=== PATIENT | male | born 1990 | race Two or more races ===

== ENCOUNTER 2020-02-26 22:50 | Emergency (ER) | payer MEDICAID, OTHER ==
[~2020-02-26] VITALS: Ht 185.4 cm; Wt 86.2 kg
--- NOTE | 2020-02-26 23:29 | NUR ---
PT AAOX4. BIBRA C/O SUICIDAL IDEATION WITH PLAN TO OVERDOSE +AUDITORY HALLUCINATIONS. PT PLACED IN GOWN, ON MONITOR, AND PULSE OX. SITTER AT BEDSIDE/ PT BELONINGS PLACED IN LOCKER. WILL CONTINUE TO MONITOR.
[2020-02-26 23:47] LABS: BASOPHILS % (AUTO) 0.6 % (0.0-2.0); EOSINOPHILS % (AUTO) 2.8 % (0.0-6.0); HEMATOCRIT 40 % (39-51); HEMOGLOBIN 13.1 g/dL (13.5-17.5); LYMPHOCYTES # (AUTO) 2.7 /CMM (0.8-4.8); LYMPHOCYTES % (AUTO) 35.3 % (20.0-44.0); MEAN CORPUSCULAR HGB CONC 33 g/dl (31.0-36.0); MEAN CORPUSCULAR VOLUME 88 fL (80-96); MONOCYTES % (AUTO) 12.6 % (2.0-12.0); NEUTROPHILS # (AUTO) 3.7 /CMM (1.8-8.9); NEUTROPHILS % (AUTO) 48.7 % (43.0-81.0); PLATELET COUNT (AUTO) 314 /CMM (150-450); RED BLOOD CELL COUNT(AUTO) 4.52 MIL/uL (4.5-6.0); WHITE BLOOD COUNT (AUTO) 7.6 K/uL (4.3-11.0)
[2020-02-26 23:56] LABS: CALCIUM, SERUM 8.7 mg/dL (8.5-10.1); CARBON DIOXIDE 26 mmol/L (21-32); CHLORIDE 108 mmol/L (98-107); CREATININE 0.9 mg/dL (0.6-1.3); GLUCOSE 117 mg/dL (74-106); POTASSIUM 3.5 mmol/L (3.5-5.1); SODIUM SERUM 142 mmol/L (136-145); UREA NITROGEN, BLOOD 16 mg/dL (7-18)
--- NOTE | 2020-02-26 23:56 | NUR ---
SPOKE TO PT REGARDING PROVIDING URINE SAMPLE. STATED WILL DO IN 10 MINS.
[2020-02-27 00:02] LABS: ACETAMINOPHEN 0 ug/ml (10-30); ALANINE AMINOTRANSFERASE 19 U/L (12-78); ALBUMIN 3.5 g/dL (3.4-5.0); ALCOHOL, BLOOD < 3 mg/dL (0-0); ALKALINE PHOSPHATASE 79 U/L (46-116); ASPARTATE AMINOTRANSFERASE 22 U/L (15-37); BILIRUBIN,DIRECT 0.1 mg/dL (0.0-0.2); BILIRUBIN,TOTAL 0.3 mg/dL (0.2-1.0)
[2020-02-27 00:41] LABS: BILIRUBIN,URINE NEGATIVE (NEGATIVE); BLOOD, URINE NEGATIVE Ery/uL (NEGATIVE); COLOR,URINE YELLOW (YELLOW); LEUKOCYTE ESTERASE ,URINE NEGATIVE (NEGATIVE); NITRITE, URINE NEGATIVE (NEGATIVE); PH,URINE 6.5 (5.0-8.0); PROTEIN,URINE NEGATIVE (NEGATIVE); UGLUCOSE NEGATIVE (NEGATIVE)
[2020-02-27 00:59] LABS: UROBILINOGEN,URINE 0.2 EU/dL (0.2)
--- NOTE | 2020-02-27 03:56 | NUR ---
PT REMAINS ASLEEP,VSS.
--- NOTE | 2020-02-27 04:00 | NUR ---
CALLED [facility], LEFT VOICEMAIL
--- NOTE | 2020-02-27 05:42 | NUR ---
PT AWAKE IN BED, RESTING COMFORTABLY. VSS.
--- NOTE | 2020-02-27 07:17 | NUR ---
REPORT GIVEN TO CARMEN VILLAR FOR [facility]
[2020-02-27] MEDS ORDERED: QUETIAPINE FUMARATE 25 MG TABLET ONE (08:52)
[2020-02-27] MEDS: QUETIAPINE FUMARATE 25 MG TABLET PO SCH ×2 (08:53→09:05)
[2020-02-27] MEDS ORDERED: LORAZEPAM 1 MG TABLET ONE (09:07)
[2020-02-27] MEDS ORDERED: LORAZEPAM INJ 2 MG/ML VIAL ONE (09:18)
[2020-02-27] MEDS ORDERED: OLANZAPINE 10 MG VIAL IM ONE (09:18)
[2020-02-27] MEDS ORDERED: OLANZAPINE ZYDIS 5 MG TAB.RAPDIS PO ONE (09:30)
[2020-02-27] MEDS ORDERED: LORAZEPAM 1 MG TABLET PO ONE (09:30)
[2020-02-27] MEDS ORDERED: HALOPERIDOL LACTATE INJ 5 MG/ML VIAL ONE (10:10)
[2020-02-27] MEDS ORDERED: HALOPERIDOL LACTATE INJ 5 MG/ML VIAL IM ONE (10:30)
--- NOTE | 2020-02-27 14:50 | NUR ---
Lock Setter Note: Consult was requested by ED staff. Pt is a 29 year old male who presented in the ED due to suicidal ideation with a plan to overdose. SW was not able to assess the pt due to the pt being medicated and knocked out. SW will make another attempt at a later time.
--- NOTE | 2020-02-27 18:07 | NUR ---
FAXED FACESHEET AND CLINICALS [facility]
--- NOTE | 2020-02-27 19:34 | NUR ---
PT ACCEPTED AT [facility] ACCEPTING MD HAM UNIT 1 PHONE NUMBER FOR REPORT EXT [phone]
--- NOTE | 2020-02-27 19:41 | NUR ---
[facility] ETA 1999 HOURS
[2020-02-27 19:55] VITALS: BP 127/62
--- NOTE | 2020-02-27 19:56 | NUR ---
REPORT CALLED TO [facility] BECKER. AWAITING TRANSPORT.
--- NOTE | 2020-02-27 20:29 | NUR ---
PT WAS PICKED UP VIA GURNEY AND TRANSFERRED TO [facility] IN STABLE CONDITION. ALL BELONGING S PIXCKED UP BY PT
== END 2020-02-27 20:33 ==
LOC: ER 22:53
DX: F29 Unspecified psychosis not due to a substance or known physiological condition (principal); R45.851 Suicidal ideations; F19.10 Other psychoactive substance abuse, uncomplicated; F15.10 Other stimulant abuse, uncomplicated; Z82.49 Family history of ischemic heart disease and other diseases of the circulatory system; Z20.828 Contact with and (suspected) exposure to other viral communicable diseases
CPT/HCPCS: 36415; 80048; 80076; 80299; 80307; 80320; 81003; 85025; 87426; 96372; 99284; C9803; J1630; G0480; J2060; J3490

== ENCOUNTER 2021-08-28 23:07 | Emergency (ER) | payer MEDICAID, OTHER ==
[~2021-08-28] VITALS: Ht 182.9 cm; Wt 68.0 kg
--- NOTE | 2021-08-29 01:26 | NUR ---
PRESENTED TO THE ER FOR C/O ANXIETY AND DEPRESSION , REQUESITNG VOLUNTARY PSYCH ADMIT. PT A OX3, AGITATED, AMBULATORY TO THE BATHROOM WITH STEADY GAITS. REFUSED TO PROVIDE GARDNER SAMPLE. COVID SWAB COLLECTED. GOWNED UP . ALL BELONGINGS TAKEN AWAY IN SAFE AND SECURITY WAS CALLED TO WAND THE PATIENT. PT WAS PLACED IN BED 18, WILL CONTINUE TO MONITOR . SI PRECAUTION IMPLEMENTED.
[2021-08-29 01:56] LABS: BILIRUBIN,URINE NEGATIVE (NEGATIVE); COLOR,URINE YELLOW (YELLOW); LEUKOCYTE ESTERASE ,URINE NEGATIVE (NEGATIVE); NITRITE, URINE NEGATIVE (NEGATIVE); PH,URINE 7.5 (5.0-8.0); PROTEIN,URINE NEGATIVE (NEGATIVE); UGLUCOSE NEGATIVE (NEGATIVE); UROBILINOGEN,URINE 0.2 EU/dL (0.2)
[2021-08-29 02:02] LABS: BASOPHILS # (AUTO) 0.1 K/uL (0.0-0.2); BASOPHILS % (AUTO) 0.8 % (0.0-2.0); EOSINOPHILS % (AUTO) 2.8 % (0.0-6.0); HEMATOCRIT 44 % (39-51); HEMOGLOBIN 14.5 g/dL (13.5-17.5); LYMPHOCYTES # (AUTO) 3.6 K/uL (0.8-4.8); LYMPHOCYTES % (AUTO) 47.4 % (20.0-44.0); MEAN CORPUSCULAR HGB CONC 33 g/dl (31.0-36.0); MEAN CORPUSCULAR VOLUME 89 fL (80-96); MONOCYTES # (AUTO) 0.7 K/uL (0.1-1.30); MONOCYTES % (AUTO) 9.4 % (2.0-12.0); NEUTROPHILS % (AUTO) 39.6 % (43.0-81.0); PLATELET COUNT (AUTO) 427 K/uL (150-450); RED BLOOD CELL COUNT(AUTO) 4.95 MIL/uL (4.5-6.0); WHITE BLOOD COUNT (AUTO) 7.6 K/uL (4.3-11.0)
[2021-08-29 02:11] LABS: CALCIUM, SERUM 9.4 mg/dL (8.5-10.1); CARBON DIOXIDE 31 mmol/L (21-32); CHLORIDE 103 mmol/L (98-107); CREATININE 1.4 mg/dL (0.6-1.3); GLUCOSE 64 mg/dL (74-106); POTASSIUM 4.8 mmol/L (3.5-5.1); SODIUM SERUM 140 mmol/L (136-145); UREA NITROGEN, BLOOD 21 mg/dL (7-18)
[2021-08-29 02:18] LABS: ALANINE AMINOTRANSFERASE 21 U/L (12-78); ALBUMIN 3.9 g/dL (3.4-5.0); ALKALINE PHOSPHATASE 82 U/L (46-116); ASPARTATE AMINOTRANSFERASE 23 U/L (15-37); BILIRUBIN,DIRECT 0.1 mg/dL (0.0-0.2); BILIRUBIN,TOTAL 0.2 mg/dL (0.2-1.0); TOTAL PROTEIN, SERUM 7.9 g/dL (6.4-8.2)
[2021-08-29 02:21] LABS: ACETAMINOPHEN 0 ug/ml (10-30); ALCOHOL, BLOOD < 3 mg/dL (0-0)
--- NOTE | 2021-08-29 03:25 | NUR ---
FACESHEET AND CLINICALS FAXED TO [facility].
--- NOTE | 2021-08-29 07:06 | NUR ---
[facility] ACCEPTED BY DR ROSARIO #[phone]
--- NOTE | 2021-08-29 07:11 | NUR ---
[facility] CALLED FOR BLS TO [facility] ETA- 1100
--- NOTE | 2021-08-29 09:43 | NUR ---
TIAGO notified by [facility] that this pt. was accepted to [facility] under the care of Dr. Richards. They will call and provide Joaquin number. TIAGO notified [facility] to cancel transport to [facility] and arrange instead to [place] location.
--- NOTE | 2021-08-29 11:00 | NUR ---
ACCEPTED AT [facility] ACCEPTING: DR CUELLAR # FOR REPORT: [phone] ROOM#: 303-B
--- NOTE | 2021-08-29 11:04 | NUR ---
[facility] CALLED FOR TRANSPORT ETA 60 MINS PER JUHI.
--- NOTE | 2021-08-29 11:08 | NUR ---
REPORT GIVEN TO SINA VILLAR OF [facility].
[2021-08-29 12:20] VITALS: BP 124/70
--- NOTE | 2021-08-29 12:23 | NUR ---
PICKED UP BY [facility] UNIT 255 IN STABLE CONDITION. ALL BELONGINGS GIVEN BACK TO PATIENT. PATIENT WILL BE TRANSFERRED TO [facility].
[2021-08-29] MEDS ORDERED: LORAZEPAM 1 MG TABLET ONE (12:36)
--- NOTE | 2021-08-29 12:38 | NUR ---
ATIVAN 1 MG PO ONCE PER DR ALFORD. THE ORDER IS READ BACK, VERIFIED. NOTED AND CARRIED OUT.
--- NOTE | 2021-08-29 12:39 | NUR ---
REPORT GIVEN TO AMBULANCE STAFF
--- NOTE | 2021-08-29 12:40 | NUR ---
PICKED UP BY [facility]ULANCE IN STABLE CONDITION
[2021-08-29] MEDS ORDERED: LORAZEPAM 1 MG TABLET PO ONE (13:00)
== END 2021-08-29 13:37 ==
LOC: ER 23:10
DX: F32.A Depression, unspecified (principal); F41.9 Anxiety disorder, unspecified; F19.10 Other psychoactive substance abuse, uncomplicated; Z20.822 Contact with and (suspected) exposure to COVID-19
CPT/HCPCS: 36415; 80048; 80076; 80143; 80307; 80320; 81003; 85025; 87426; 99283; C9803; G0480

== ENCOUNTER 2021-09-22 20:57 | Emergency (ER) | payer OTHER ==
[~2021-09-22] VITALS: Ht 182.9 cm; Wt 68.0 kg
--- NOTE | 2021-09-22 21:39 | NUR ---
BIBSELF C/O +SI WANTING VOL PSYCH ADMIT, PER PT STATED HE DID FENTANYL X 1 HR AGO. PATIENT IS A/O X 4, RR EVEN AND UNLABORED NO SOB NOTED. PATEINT TAKEN TO ER BED 12. PATIENT CONNECTED TO CARDIAC AND POX MONITORS. PATIENT WANDED BY SECURITY, BELONGINGS TAKEN AND PLACED IN LOCKER. PATIENT PLACED IN HOSPITAL GOWN AND SITTER AT BEDSIDE.
--- NOTE | 2021-09-22 21:40 | NUR ---
URINE COLLECTED SENT TO LAB
[2021-09-22 21:59] LABS: BASOPHILS % (AUTO) 0.4 % (0.0-2.0); EOSINOPHILS % (AUTO) 1.5 % (0.0-6.0); HEMATOCRIT 37 % (39-51); HEMOGLOBIN 12.2 g/dL (13.5-17.5); LYMPHOCYTES # (AUTO) 2.8 K/uL (0.8-4.8); LYMPHOCYTES % (AUTO) 27.4 % (20.0-44.0); MEAN CORPUSCULAR HGB CONC 34 g/dl (31.0-36.0); MEAN CORPUSCULAR VOLUME 87 fL (80-96); MONOCYTES # (AUTO) 0.8 K/uL (0.1-1.30); MONOCYTES % (AUTO) 7.8 % (2.0-12.0); NEUTROPHILS # (AUTO) 6.5 K/uL (1.8-8.9); NEUTROPHILS % (AUTO) 62.9 % (43.0-81.0); PLATELET COUNT (AUTO) 460 K/uL (150-450); RED BLOOD CELL COUNT(AUTO) 4.19 MIL/uL (4.5-6.0); WHITE BLOOD COUNT (AUTO) 10.3 K/uL (4.3-11.0)
--- NOTE | 2021-09-22 22:07 | NUR ---
COVID SWAB COLLECTED AND SENT TO LAB
[2021-09-22 22:08] LABS: CALCIUM, SERUM 8.3 mg/dL (8.5-10.1); CARBON DIOXIDE 30 mmol/L (21-32); CHLORIDE 108 mmol/L (98-107); GLUCOSE 114 mg/dL (74-106); POTASSIUM 3.3 mmol/L (3.5-5.1); SODIUM SERUM 142 mmol/L (136-145); UREA NITROGEN, BLOOD 15 mg/dL (7-18)
[2021-09-22 22:11] LABS: BILIRUBIN,URINE NEGATIVE (NEGATIVE); COLOR,URINE YELLOW (YELLOW); LEUKOCYTE ESTERASE ,URINE NEGATIVE (NEGATIVE); NITRITE, URINE NEGATIVE (NEGATIVE); PROTEIN,URINE NEGATIVE (NEGATIVE); UGLUCOSE NEGATIVE (NEGATIVE); UROBILINOGEN,URINE 0.2 EU/dL (0.2)
[2021-09-22 22:13] LABS: ALANINE AMINOTRANSFERASE 41 U/L (12-78); ALBUMIN 3.2 g/dL (3.4-5.0); ALKALINE PHOSPHATASE 72 U/L (46-116); ASPARTATE AMINOTRANSFERASE 57 U/L (15-37); BILIRUBIN,DIRECT 0.1 mg/dL (0.0-0.2); BILIRUBIN,TOTAL 0.1 mg/dL (0.2-1.0); TOTAL PROTEIN, SERUM 6.7 g/dL (6.4-8.2)
[2021-09-22 22:15] LABS: ACETAMINOPHEN < 2 ug/ml (10-30); ALCOHOL, BLOOD < 3 mg/dL (0-0)
--- NOTE | 2021-09-22 23:29 | NUR ---
CLINICALS FAXED TO [facility]
--- NOTE | 2021-09-23 01:04 | NUR ---
PER [facility] NO BED AVAILABLE
--- NOTE | 2021-09-23 08:41 | NUR ---
TIAGO called [facility] TEL:[phone] and Gris stated bed is still pending at [facility] for this patient.
--- NOTE | 2021-09-23 09:19 | NUR ---
CALLED CRISTIAN FROM [facility] AND WAS NOTIFIED THAT THERE ARE NO BEDS AVAILABLE
--- NOTE | 2021-09-23 10:22 | NUR ---
patient verbalized "i am not suicidal anymore". MD notified and aware.
[2021-09-23 10:23] VITALS: BP 120/71
== END 2021-09-23 10:24 | disposition home or self-care (01) ==
LOC: ER 21:00
DX: R45.851 Suicidal ideations (principal); F11.10 Opioid abuse, uncomplicated; F39 Unspecified mood [affective] disorder; Z20.822 Contact with and (suspected) exposure to COVID-19; Z59.00 Homelessness unspecified
CPT/HCPCS: 99285; 85025; 80048; 80076; 81003; 36415; 87426; 80143; 80320; 80307; C9803; G0480

== ENCOUNTER 2021-09-30 21:22 | Emergency (ER) | payer OTHER ==
[~2021-09-30] VITALS: Ht 185.4 cm; Wt 72.6 kg
--- NOTE | 2021-09-30 22:42 | NUR ---
CALLED FOR TRIAGE NOT IN WAITING ROOM
--- NOTE | 2021-09-30 23:25 | NUR ---
BIBS FOR S/I WITH PLAN TO OD ON FENTANYL SEEKING VOLUNTARY ADMISSION TO COUNT INCLUDES THE [facility]. PATIENT BELONGINGS TAKEN AND PLACED IN LOCKER. PATIENT BEING AGGRESSIVE AND USING PROFANITY TO STAFF. IN BED 15 AWAITING MD GARCIA.
--- NOTE | 2021-09-30 23:31 | NUR ---
PATIENT BEING COMBATIVE TOWARDS STAFF, WAS PLACED IN RESTRAINTS MD NOTIFIED. SITTER AT BEDSIDE
--- NOTE | 2021-09-30 23:39 | NUR ---
URINE COLLECTED AND SENT TO LAB
--- NOTE | 2021-09-30 23:39 | NUR ---
COVID SWAB DONE AND SENT TO LAB
[2021-10-01 00:06] LABS: BASOPHILS # (AUTO) 0.1 K/uL (0.0-0.2); BASOPHILS % (AUTO) 0.9 % (0.0-2.0); EOSINOPHILS % (AUTO) 1.6 % (0.0-6.0); HEMATOCRIT 40 % (39-51); HEMOGLOBIN 13.4 g/dL (13.5-17.5); LYMPHOCYTES # (AUTO) 1.4 K/uL (0.8-4.8); LYMPHOCYTES % (AUTO) 20.1 % (20.0-44.0); MEAN CORPUSCULAR HGB CONC 34 g/dl (31.0-36.0); MEAN CORPUSCULAR VOLUME 87 fL (80-96); MONOCYTES # (AUTO) 0.7 K/uL (0.1-1.30); MONOCYTES % (AUTO) 9.6 % (2.0-12.0); NEUTROPHILS # (AUTO) 4.9 K/uL (1.8-8.9); NEUTROPHILS % (AUTO) 67.8 % (43.0-81.0); PLATELET COUNT (AUTO) 507 K/uL (150-450); RED BLOOD CELL COUNT(AUTO) 4.59 MIL/uL (4.5-6.0); WHITE BLOOD COUNT (AUTO) 7.2 K/uL (4.3-11.0)
[2021-10-01 00:07] LABS: BILIRUBIN,URINE NEGATIVE (NEGATIVE); COLOR,URINE YELLOW (YELLOW); LEUKOCYTE ESTERASE ,URINE NEGATIVE (NEGATIVE); NITRITE, URINE NEGATIVE (NEGATIVE); PROTEIN,URINE NEGATIVE (NEGATIVE); UGLUCOSE NEGATIVE (NEGATIVE); UROBILINOGEN,URINE 0.2 EU/dL (0.2)
[2021-10-01 00:30] LABS: ALANINE AMINOTRANSFERASE 67 U/L (12-78); ALBUMIN 3.3 g/dL (3.4-5.0); ALKALINE PHOSPHATASE 81 U/L (46-116); ASPARTATE AMINOTRANSFERASE 61 U/L (15-37); BILIRUBIN,DIRECT 0.1 mg/dL (0.0-0.2); BILIRUBIN,TOTAL 0.2 mg/dL (0.2-1.0); CALCIUM, SERUM 8.7 mg/dL (8.5-10.1); CARBON DIOXIDE 26 mmol/L (21-32); CHLORIDE 101 mmol/L (98-107); CREATININE 1.1 mg/dL (0.6-1.3); GLUCOSE 103 mg/dL (74-106); POTASSIUM 3.7 mmol/L (3.5-5.1); SODIUM SERUM 135 mmol/L (136-145); TOTAL PROTEIN, SERUM 7.2 g/dL (6.4-8.2); UREA NITROGEN, BLOOD 14 mg/dL (7-18)
[2021-10-01 00:32] LABS: ACETAMINOPHEN < 2 ug/ml (10-30); ALCOHOL, BLOOD < 3 mg/dL (0-0)
--- NOTE | 2021-10-01 02:57 | NUR ---
FACE SHEET AND CLINICALS FAXED TO [facility]
--- NOTE | 2021-10-01 08:24 | NUR ---
TIAGO called [facility] TEL:[phone] fax:[phone] to get update. Per Intake, they are waiting on feedback from charge nurse.
--- NOTE | 2021-10-01 09:34 | NUR ---
PAGED COVID RESULT TO [facility]
[2021-10-01] MEDS ORDERED: OLANZAPINE 10 MG VIAL IM ONE ×2 (09:54→10:00)
--- NOTE | 2021-10-01 09:59 | NUR ---
PT AGITATED, RESTLESS, YELLING ERMD MADE AWARE. MEDCATED ORDERED. SEE EMAR.
--- NOTE | 2021-10-01 09:59 | NUR ---
[facility] CALLED,WAITING ON DECISION FROM VICE PRESIDENT TAX PER CRISTIAN
--- NOTE | 2021-10-01 10:25 | NUR ---
CALL FROM JOLANTA,ACCEPTED BY DR CUELLAR AT [facility],REPORT TO [phone]
--- NOTE | 2021-10-01 10:27 | NUR ---
CALLED [facility] AND SET UP BLS TRANSPORT ETA 1200
[2021-10-01 11:15] VITALS: BP 126/75
--- NOTE | 2021-10-01 11:39 | NUR ---
SS note: SS consult requested for SI, Homelessness and drug abuse. The pt. is a 30 year old black male who came in for suicidal ideation with plan to OD on Fentanyl and Methamphetamine per EMR. The pt. also has Hx. of depression and has been referred to [facility] [[address] [place] [address] FAX:[phone]] for voluntary psychiatric treatment. SW met with pt. at bedside. The pt. was awake, moving in bed with eyes closed. Pt. did not engage with SW. SW attempted to interview pt. again and pt. did not engage in conversation. SW placed homeless waiver in patient's chart and left homeless resorces at bedside. Year-round shelters: [facility] [address] [place], [place] [id number] ; [place] [facility] [place] [address] [place] [address]; [place] [facility] Wjwcyxz2546 [facility]. [facility] [address] Hygiene: [facility]: [address] [place] ; [facility] [address] [facility] ; [facility] [address] [facility] [place] . Food Resources: [employer] at [facility]- [address] [facility]; Meet Each Need with Dignity ([facility]) [address] [facility] [place]; [facility] [address] [facility]; [facility] 7[address] [facility]. Mental Health resources provided: [facility] [address] [place] [address] ; [facility] [employer] [address] [facility] [address], [place] [address] ; Fanny Martinez [facility] [address] [place] [address] ; [facility] [place], [place] [phone] Healthcare Clinics: [facility] [address] [facility], [address] [place] ; [facility] [address] [facility] [address] [place] [address]; [facility] [address] [place] [address] [phone] Counseling--Outpatient [facility] [address] [facility], [place] [address] (Specializes in in-depth psychotherapy for emotional distress: anxiety, depression, interpersonal conflicts, life transitions, childhood abuse) [facility] [address] [place] [address] (Assist with solving problem marital difficulties, separation & divorce, aging parents, & grief, chronic & terminal illness) [facility] [address] [place] [address] (Deal with loss & grief, anxiety, marital difficulties) Homebound/Mental Health Services [address], [address] [place] [address] (Provide in-home mental services to people who are incapable of leaving their homes) [facility] Elder[facility] Senior Service/Resource Center [address] [place] [address] [facility] [address] [place] [address] PSYCHIATRIC OUTPATIENT SERVICES [facility] Partial Hospitalization and Intensive Outpatient Program (Managed Care and [place] Only)[address] [place] [address]. [facility] [phone] [facility] Partial Hospitalization and Outpatient [id number] [place], [place] [phone] B[facility] N[facility] Lko[address] Greta [facility]. [address] [place], [place] [phone] [facility] Partial Hospitalization and Outpatient Mipizun[address], [phone] Substance Abuse resources provided included: [facility] Substance Abuse Self-Helpline ([facility]) ; [facility]LP [address] [facility]. [place] [address] ; [facility] [address] [facility] [address] ; [facility] Rehabilitation Program [address] [facility] [place] [phone] ; [facility] [address] [facility] [phone] ; [facility] Treatment [facility] [address] [facility] [address] ; [facility] 9[address] [facility] [phone] ; [facility] Substance Abuse Helpline([facility])-[facility] ; [facility] ; [facility] [place]; [facility] [place]; [facility] [place]; [facility] [place] nig[place]; [place] [facility]; Morgan Selma Dixon; [facility] [place]; [facility] [employer] [place]; Alcoholics Anonymous -SFV; Io-Fvdj-Exouufl ; Marijuana Anonymous -[facility]V; Narcotics Anonymous www.na.org;
--- NOTE | 2021-10-01 12:40 | NUR ---
TRANSFERED TO [facility] IN STABLE CONDITION.
== END 2021-10-01 12:46 ==
LOC: ER 21:25
DX: R45.851 Suicidal ideations (principal); F19.10 Other psychoactive substance abuse, uncomplicated; F32.A Depression, unspecified; R45.1 Restlessness and agitation; Z20.822 Contact with and (suspected) exposure to COVID-19
CPT/HCPCS: 99285; 85025; 80048; 80076; 81003; 36415; 80143; 80320; 80307; 96372; 87426; J3490; C9803; G0480